=== PATIENT | female | born 1955 | race Caucasian/White ===

== ENCOUNTER 2020-09-05 09:34 | Emergency (ER) | payer OTHER ==
[2020-09-06 13:08] LABS: SARS-CoV-2 NAA Not Detected (Not Detected)
== END 2020-09-05 10:21 | disposition home or self-care (01) ==
LOC: JVIRT 09:34
DX: Z20.822 Contact with and (suspected) exposure to COVID-19 (principal)
CPT/HCPCS: C9803; G2251-GT; Q3014-GT; U0003; U0005

== ENCOUNTER 2020-09-18 11:27 | Emergency (ER) | payer OTHER ==
[2020-09-19 11:08] LABS: SARS-CoV-2 NAA Not Detected (Not Detected)
== END 2020-09-18 12:21 | disposition home or self-care (01) ==
LOC: JVIRT 11:27
DX: Z11.52 Encounter for screening for COVID-19 (principal)
CPT/HCPCS: C9803; G2251-GT; Q3014-GT; U0003; U0005